=== PATIENT | female | born 2000 | race Hispanic/Latino ===

== ENCOUNTER 2019-05-19 22:27 | Observation (INO) | payer MEDICAID ==
[~2019-05-19] VITALS: Ht 167.6 cm; Wt 110.2 kg
[2019-05-19 23:10] LABS: APPEARANCE,URINE Clear (CLEAR); BILIRUBIN,URINE Negative (NEGATIVE); COLOR,URINE Yellow (YELLOW); GLUCOSE, URINE (UA) Negative (NEGATIVE); KETONES,URINE 15 mg/dL (NEGATIVE); LEUKOCYTE ESTERASE ,URINE Trace (NEGATIVE); NITRATE,URINE Negative (NEGATIVE); OCCULT BLOOD,URINE Negative (NEGATIVE); PH,URINE 5.5 (5.0-8.0); PROTEIN,URINE Negative (NEGATIVE); UROBILINOGEN,URINE 0.2 mg/dL (0.2-1.0)
[2019-05-19 23:18] LABS: AMPHET/METH SCREEN,URINE NEGATIVE (NEGATIVE); BARBITURATE SCREEN, URINE NEGATIVE (NEGATIVE); BENZODIAZEPINES SCREEN,URINE NEGATIVE (NEGATIVE); CANNABINOID SCREEN,URINE NEGATIVE (NEGATIVE); COCAINE SCREEN,URINE NEGATIVE (NEGATIVE); OPIATE SCREEN,URINE NEGATIVE (NEGATIVE); PHENCYCLIDINE SCREEN,URINE NEGATIVE (NEGATIVE)
[2019-05-19 23:28] LABS: BACTERIA,URINE None Seen /HPF (None Seen); RBC,URINE None Seen /HPF (0-1); SQUAMOUS EPITHELIAL CELL,UR Moderate /HPF (0-2); WBC,URINE 0-1 /HPF (0-1)
[2019-05-19] MEDS ORDERED: PROMETHAZINE HCL 25 MG/ML 1ML AMPULE IM PRN (23:45)
[2019-05-19] MEDS ORDERED: MEPERIDINE-PF 50 MG/ML SYG IVP PRN (23:45)
[2019-05-19] MEDS ORDERED: ACETAMINOPHEN EXTRA STRENGTH 500 MG TABLET PO PRN (23:45)
[2019-05-20] MEDS: LACTATED RINGERS 1000ML 1,000 ML IV PRN ×3 (00:11→03:50)
[2019-05-20] MEDS ORDERED: MEPERIDINE-PF 50 MG/ML SYG ONE (00:51)
[2019-05-20] MEDS ORDERED: PHARMACY COMMUNICATION MISC SCH (02:45)
[2019-05-20] MEDS ORDERED: TERBUTALINE SULFATE VIAL 1MG/ML SQ SCH ×2 (02:45)
[2019-05-20] MEDS ORDERED: CELESTONE SOLUSPAN 6 MG/ML 5ML VIAL ONE (02:47)
[2019-05-20] MEDS ORDERED: TERBUTALINE SULFATE VIAL 1MG/ML SQ ONE (02:47)
[2019-05-20] MEDS ORDERED: CELESTONE SOLUSPAN 6 MG/ML 5ML VIAL IM SCH (15:00)
== END 2019-05-20 15:02 | disposition home or self-care (01) ==
LOC: EDH 22:27 → LDH 22:28 → WSH 05-20 00:40
PROVIDERS: ADMIT Obstetrics & Gynecology; ATTEND Obstetrics & Gynecology
DX: O60.02 Preterm labor without delivery, second trimester (principal); Z3A.27 27 weeks gestation of pregnancy; Z79.899 Other long term (current) drug therapy
CPT/HCPCS: 76805; 80305; 81001; 96372; 99284; G0378 ×17; J0702; J2175; J3105 ×2; J7120 ×2; 96360; 96361